=== PATIENT | female | born 1960 | race Caucasian/White ===

== ENCOUNTER 2018-06-16 12:28 | Emergency (ER) | payer MEDICARE, MEDICAID ==
[~2018-06-16] VITALS: Ht 177.8 cm; Wt 108.9 kg
[~2018-06-16 12:28] MED LIST: AMITRIPTYLINE H25 MG PO; BACLOFEN10 MG PO; CYMBALTA30 MG PO; DOXYCYCLINE HY100 MG PO; FUROSEMIDE20 MG PO; IPRAT-ALBUT 0.5-3 ML INH; LEVOTHYROXINE75 MCG PO; LISINOPRIL20 MG PO; NAPROXEN500 MG PO; NORCO 7.5-3251 EACH PO; POTASSIUM CHLO10 MEQ PO; PRADAXA75 MG PO; PREDNISONE20 MG PO; SYMBICORT 16010.2 GM INH; TAZTIA XT240 MG PO; VENTOLIN HFA18 GM INH; XARELTO20 MG PO
[2018-06-16] MEDS ORDERED: CLEOCIN HCL300 MG PO (13:36)
[2018-06-16] MEDS ORDERED: PRINIVIL20 MG PO (13:37)
--- NOTE | 2018-06-17 07:43 | EKG ---
[facility] [address] [facility] [place] [address] Signed Atrial fibrillation with rapid ventricular response with premature ventricular or aberrantly conducted complexes Left axis deviation Right bundle branch block Abnormal ECG When compared with ECG of 09-MAY-2018 15:00, No significant change was found Confirmed by TERESA NGUYEN MD ([id number]) on 06/17/2018 7:43:03 AM Electronically Signed By: TERESA NGUYEN MD 06/17/18 0743 PATIENT NAME: NUVIA MEZA Electrocardiogram DATE OF : 58 PHYSICIAN: TERESA NGUYEN MD REPORT #: [id number] REPORT IS CONFIDENTIAL AND NOT TO BE RELEASED WITHOUT AUTHORIZATION
== END 2018-06-16 18:50 | disposition short-term general hospital (02) ==
LOC: ED 12:28
PROC: 0T9B70Z Drainage of Bladder with Drainage Device, Via Natural or Artificial Opening (ICD-10-PCS; principal; 2018-06-16)
DX: A41.9 Sepsis, unspecified organism (principal); I48.91 Unspecified atrial fibrillation; I11.0 Hypertensive heart disease with heart failure; I50.9 Heart failure, unspecified; F17.200 Nicotine dependence, unspecified, uncomplicated; Z88.0 Allergy status to penicillin; Z79.899 Other long term (current) drug therapy
CPT/HCPCS: 36600; 51702; 70450; 71045; 73590; 80053; 81001; 82803; 83605; 85025; 85610; 85730; 87040; 87502; 93005; 93010; 96361; 96365; 96366; 96367; 96375; 96376; 99285-25; J0692; J2060; J3370; J7030; J7060